=== PATIENT | female | born 1990 | race African-American/Black ===

== ENCOUNTER 2020-03-22 17:01 | Emergency (ER) | payer MEDICAID ==
[~2020-03-22] VITALS: Ht 160 cm; Wt 95.3 kg
[2020-03-22 17:07] VITALS: BP_SYST 163
--- NOTE | 2020-03-22 17:11 | NUR ---
Patient to ER bed 04 to gown for evaluation. Side rails up. Report given to jassi Marx
--- NOTE | 2020-03-22 17:20 | NUR ---
Pt c/o allergic reaction from eating [employer]. Pt able to speak in full sentences, no SOB noted. Pt states she is itchy. No acute distress noted. Pt states no other food allergies. No other complaints or injuries noted.
--- NOTE | 2020-03-22 17:30 | NUR ---
ER Dr. Short at bedside examining patient.
[2020-03-22] MEDS: DIPHENHYDRAMINE INJ 50 MG/ML VIAL IM ONE (18:09)
--- NOTE | 2020-03-22 18:16 | NUR ---
Administered benadryl IM per MD order. Pt tolerated well.
--- NOTE | 2020-03-22 18:45 | NUR ---
Pt states no distress at this time.
[2020-03-22 19:35] VITALS: BP_SYST 144
--- NOTE | 2020-03-22 19:35 | NUR ---
Patient given written and verbal discharge instructions and verbalizes understanding. ER MD discussed with patient the results and treatment provided. Patient in stable condition. ID arm band removed. Rx of benadryl given. Patient educated on pain management and to follow up with PMD. Pain Scale 0/10. Opportunity for questions provided and answered. Medication side effect fact sheet provided.
== END 2020-03-22 19:35 | disposition home or self-care (01) ==
LOC: SED 17:01
DX: R22.0 Localized swelling, mass and lump, head (principal); Z88.6 Allergy status to analgesic agent
CPT/HCPCS: 96372; 99283; J1200